=== PATIENT | male | born 1950 | race Caucasian/White ===

== ENCOUNTER 2025-10-24 13:00 | Outpatient (RCR) | payer MEDICARE, SELFPAY ==
--- NOTE | 2025-08-24 11:01 | HP.PTEVAL ---
Patient's Visit Information Visit Information Visit Information: CHELSEA MCADAMS is a 75 year old M referred to Physical Therapy by Burak Savage MD with a diagnosis of L LE amputation. Date of Evaluation: 08/23/25 Physical Therapist: Tristan Keys, PT, ATC Visit Plan Frequency: 2x /Week Duration: 4-8 weeks Plan: B LE strengthening, stretching and strengthening, balance and proprio, gait training, stair neg, nustep, and HEP Subjective Subjective: DOS: 03/23/25. 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 Pt notes he is diabetic by nature, and reports he developed an ulcer in his L LE which resulted in him becoming septic. Pt notes he was issued a prosthetic leg 2 months ago and is trying to learn how to fully use the leg. pt notes it works some times and others it doesnt. Pt is retired at this time. Pt notes he has good sensation in the residual limb of L LE. Pt notes R LE is hyposensitive. Pt reports he is not in any pain at this time. Pt also notes no sleep difficulty at this time. Pt reports he has 5 steps he has to negotiate daily which he is able to at this time without difficulty. Pt reports he has been walking with a walker at home, but feels like he is going to be able to lose that soon. Pt notes his goal is to become more stable with ambulation. Objective Objective: TU sec Neuro: B LE sensation is WNL to light touch MMT: R LE is grossly 4+/5 throughout. L LE is grossly 3+/5 throughout. Gait: Pt is able to ambulate approximately 60 feet until needing to rest secondary to fatigue. stairs: Pt is able to negotiate 10 stairs with 2 rails Balance/Special Test Scores Lower Extremity Functional Score: 25 Goals Goal 1:: Pt will be able to ambulate greater than 600 feet with WW to aid with I in the community Goal Time Frame: 6-8 Weeks Goal 2:: Pt will perform the TUG test in under 30 sec to aid with gait efficiency Goal Time Frame: 6-8 Weeks Goal 3:: Pt will be I with HEP Goal Time Frame: 6-8 Weeks Rehabilitation Potential Physical Therapy Diagnosis: Pt has L LE weakness, difficulty stairs, and intol for prolonged ambulation secondary to L AKA Rehabilitation Potential: Good Anticipated Interventions Patient/Client Instruction: Educate patient on: Condition and Plan of Care For the Purpose of:: To improve self management Therapeutic Exercise to Include: Strength training, Endurance training, Balance training, Gait and locomotor training and Dynamic Lumbar Stabilization For the Purpose of:: To decrease pain, To increase ROM and To improve muscle performance and motor function Text: Thank you for the opportunity to evaluate your patient. For Medicare and Medicare HMO plans, please review the plan of care and approve it. It will need to be FAXED BACK to us at [phone] for Medicare purposes. For Medicare only, by signing this I certify the plan of care. Please let me know if there are questions or concerns regarding this plan of care. Physician Signature: Date:
--- NOTE | 2025-09-26 14:06 | HP.PTREVAL ---
Re-Evaluation Intro: Burak Savage MD, It has been my pleasure to treat CHELSEA MCADAMS over the last 9 visits for L LE amputation. Please see the progress note below for an update on the physical therapy plan of care! Subjective Subjective: Pt reports PT has been really helpful. He is standing, walking, and transferring much better overall. Objective Objective/Function: Gait: Pt is able to ambulate 340 feet with WW and CGAx1 until needing to sit and rest. TU.46 seconds stairs: Pt is able to negotiate 10 stairs with 2 rails one step at a time Pt is showing excellent progress with gait tolerance and efficiency at this time. Plan Plan Plan: 09/26/25- B LE strengthening, stretching, balance and proprio, gait training, stair neg, nustep, and HEP Balance/Gait/Functional tests Balance/Special Test Scores Lower Extremity Functional Score: 25 TUG Test Time Seconds: 36.56 Tug Test: >30sec.=impaired mobility Goals Goals Goal 1:: Pt will be able to ambulate greater than 600 feet with WW to aid with I in the community Goal Time Frame: 6-8 Weeks Goal Progress: Progressing Goal 2:: Pt will perform the TUG test in under 30 sec to aid with gait efficiency Goal Time Frame: 6-8 Weeks Goal Progress: Goal Met Goal 3:: Pt will be I with HEP Goal Time Frame: 6-8 Weeks Goal Progress: Goal Met Anticipated Interventions Anticipated Interventions Patient/Client Instruction: Educate patient on: Condition and Plan of Care For the Purpose of:: To improve self management Therapeutic Exercise to Include: Strength training, Endurance training, Balance training, Gait and locomotor training and Dynamic Lumbar Stabilization For the Purpose of:: To decrease pain, To increase ROM and To improve muscle performance and motor function Re-Evaluation Ending Re-evaluation ending: Please do not hesitate to contact me at [phone] by phone or if you have questions or concerns regarding this new plan of care! Sincerely, Tristan Keys, PT, ATC
--- NOTE | 2025-10-24 13:54 | HP.PTDCSUM_ITS ---
Discharge Summary D/C summary: It has been my pleasure to treat CHELSEA MCADAMS referred by Burak Savage MD, with the diagnosis of L LE amputation for a total of 16 visit(s). Discharge Date: Please see the following information for a summary of their discharge status. Subjective Subjective: Pt reports he is ready to be I with HEP. Pain Left LE: Pain Intensity (Out of 10): 0 Overall Improvement % Improvement: 70 Objective Objective/Function: Gait: Pt is able to ambulate 645 feet today with WW and CGAx 1 TU sec Pt is I with HEP Pt has achieved all Rx goals Goals Goal 1:: Pt will be able to ambulate greater than 600 feet with WW to aid with I in the community Goal Progress: Goal Met Goal 2:: Pt will perform the TUG test in under 30 sec to aid with gait efficiency Goal Progress: Goal Met Goal 3:: Pt will be I with HEP Goal Progress: Goal Met Plan Plan: Discharge to HEP D/C Information d/c sentence: If there are questions or concerns regarding this patient's physical therapy, please feel free to call me at [phone]. Thank you for the referral of this patient. Sincerely, Tristan Keys, PT, ATC Balance/Gait/Functional tests Balance/Special Test Scores Lower Extremity Functional Score: 53 TUG Test Time Seconds: 36.56 Tug Test: >30sec.=impaired mobility 6 Minute Walk Test: 420 feet-FWW Improvement % Improvement: 70
--- NOTE | 2025-10-24 14:00 | HP.PTDCSUM ---
Discharge Summary D/C summary: It has been my pleasure to treat CHELSEA MCADAMS referred by Burak Savage MD, with the diagnosis of L LE amputation for a total of 16 visit(s). Discharge Date: Please see the following information for a summary of their discharge status. Subjective Subjective: Pt reports he is ready to be I with HEP. Pain Left LE: Pain Intensity (Out of 10): 0 Overall Improvement % Improvement: 70 Objective Objective/Function: Gait: Pt is able to ambulate 645 feet today with WW and CGAx1 TU sec Pt is I with HEP Pt has achieved all Rx goals Goals Goal 1:: Pt will be able to ambulate greater than 600 feet with WW to aid with I in the community Goal Progress: Goal Met Goal 2:: Pt will perform the TUG test in under 30 sec to aid with gait efficiency Goal Progress: Goal Met Goal 3:: Pt will be I with HEP Goal Progress: Goal Met Plan Plan: Discharge to HEP D/C Information d/c sentence: If there are questions or concerns regarding this patient's physical therapy, please feel free to call me at [phone]. Thank you for the referral of this patient. Sincerely, Tristan Keys, PT, ATC Balance/Gait/Functional tests Balance/Special Test Scores Lower Extremity Functional Score: 53 TUG Test Time Seconds: 36.56 Tug Test: >30sec.=impaired mobility 6 Minute Walk Test: 420 feet-FWW Improvement % Improvement: 70
== END 2025-10-24 19:00 | disposition home or self-care (01) ==
LOC: PT 13:00
PROVIDERS: PCP Family Medicine; Referring Provider Orthopaedic Surgery Foot and Ankle Surgery; Visit Provider Orthopaedic Surgery Foot and Ankle Surgery
DX: S78.112D Complete traumatic amputation at level between left hip and knee, subsequent encounter (principal); M86.9 Osteomyelitis, unspecified
CPT/HCPCS: 97110; 97116; 97161; 97530